=== PATIENT | male | born 1970 | race Caucasian/White ===

== ENCOUNTER 2021-10-22 13:44 | Outpatient (CLI) | payer OTHER, SELFPAY ==
[2021-10-22 17:26] LABS: Chloride* 102 mmol/L (96-114); Potassium* 4.7 mmol/L (3.6-5.1); Sodium* 137 mmol/L (135-149)
[2021-10-22 17:28] LABS: Cholesterol* 254 mg/dL (90-199); Creatinine* 0.8 mg/dL (0.5-1.5); Estimated Glomerular Filt Rate 107 ml/min
[2021-10-22 17:29] LABS: Blood Urea Nitrogen* 11 mg/dL (7-30); Calcium* 9.5 mg/dL (8.4-10.6); Carbon Dioxide* 29 mmol/L (20-32); Glucose* 102 mg/dL (60-115); Triglycerides* 111 mg/dL (40-149)
[2021-10-22 17:30] LABS: HDL Cholesterol* 76 mg/dL (>=40); LDL Cholesterol Calculated 156 mg/dL (<100)
[2021-10-22 18:01] LABS: PSA Screen* 1.34 ng/mL (0.10-4.00)
== END 2021-10-22 13:45 | disposition home or self-care (01) ==
PROVIDERS: PCP Family Medicine; Visit Provider Family Medicine
DX: Z00.00 Encounter for general adult medical examination without abnormal findings (principal); E78.5 Hyperlipidemia, unspecified; N52.9 Male erectile dysfunction, unspecified; Z13.1 Encounter for screening for diabetes mellitus; Z12.5 Encounter for screening for malignant neoplasm of prostate
CPT/HCPCS: 80048; 80061; 84153

== ENCOUNTER 2023-01-12 08:38 | Outpatient (CLI) | payer OTHER, SELFPAY | END 2023-01-12 08:39 | disposition home or self-care (01) | PROVIDERS: PCP Family Medicine; Visit Provider Family Medicine | DX: Z00.00 Encounter for general adult medical examination without abnormal findings (principal); I10 Essential (primary) hypertension; E78.5 Hyperlipidemia, unspecified | CPT/HCPCS: 80048 ==

== ENCOUNTER 2023-04-14 11:57 | Outpatient (CLI) | payer OTHER, SELFPAY | END 2023-04-14 11:58 | disposition home or self-care (01) | LOC: LKVREF 11:57 | PROVIDERS: PCP Family Medicine; Visit Provider Family Medicine | DX: E78.2 Mixed hyperlipidemia (principal) | CPT/HCPCS: 80061 ==

== ENCOUNTER 2024-01-15 08:17 | Outpatient (CLI) | payer OTHER, SELFPAY | END 2024-01-15 08:18 | disposition home or self-care (01) | PROVIDERS: PCP Family Medicine; Visit Provider Family Medicine | DX: E78.00 Pure hypercholesterolemia, unspecified (principal); I10 Essential (primary) hypertension; Z12.5 Encounter for screening for malignant neoplasm of prostate | CPT/HCPCS: 80048; 80061; G0103 ==